=== PATIENT | male | born 1960 | race Caucasian/White ===

== ENCOUNTER → 2016-10-08 | Outpatient (CLI) | payer OTHER ==
--- NOTE | 2016-10-08 10:27 | DIAGNOSTIC IMAGING REPORT ---
CHEST 2 VIEWS ROUTINE HISTORY: J45.901 Asthma exacerbation [id number] COMPARISON: None. FINDINGS: The right lung is clear. The heart is normal in size. No pleural fusions. No pneumothorax. Suggestion of a small cluster of subcentimeter nodules within the left upper lobe. Largest nodular density measures 7 mm. IMPRESSION: There is suggestion of a small cluster of subcentimeter nodules within the left upper lobe. This favors a mild infectious bronchiolitis. One month chest x-ray follow-up is recommended to ensure resolution. Electronically signed by: Bib Noel M.D. 10/08/2016 10:26 AM Dictated Date/Time: 10/08/2016 10:23 AM
[2016-10-08 12:16] LABS: BASO % 0.2 %; BASO ABS # 0.02 K/uL (0-0.2); COMPLETE YES; EOS % 2.9 %; HEMATOCRIT 44.7 % (42-52); IG% 0.3 %; LYMPH % 16.8 %; LYMPH ABS # 1.88 K/uL (1.2-3.4); MEAN CELL VOLUME 87.3 fL (80-100); MEAN CORPUSCULAR HEMOGLOBIN 30.1 pg (25-34); MEAN CORPUSCULAR HGB CONC 34.5 g/dl (32-36); MEAN PLATELET VOLUME 10.5 fL (7.4-10.4); MONO % 9.1 %; NEUT % 70.7 %; PLATELET COUNT 251 K/uL (130-400); RED BLOOD COUNT 5.12 M/uL (4.7-6.1); WHITE BLOOD COUNT 11.16 K/uL (4.8-10.8)
== END | disposition home or self-care (01) ==
LOC: C.RAD1850 10:02
PROVIDERS: ATTEND Internal Medicine Pulmonary Disease
DX: J45.901 Unspecified asthma with (acute) exacerbation (principal)

== ENCOUNTER → 2016-10-21 | Outpatient (CLI) | payer OTHER ==
--- NOTE | 2016-10-21 11:50 | DIAGNOSTIC IMAGING REPORT ---
VENOUS DOPPLER LW EXT BILAT HISTORY: Pain. Edema. M79.89 Leg [id number] Leg pain, anterior, right scheduled at COMPARISON STUDY: None. FINDINGS: There is normal compressibility, flow, and augmentation within the bilateral lower extremity deep venous systems. IMPRESSION: No DVT within the right or left lower extremity. The above report was generated using voice recognition software. It may contain grammatical, syntax or spelling errors. Electronically signed by: Alexis Burt M.D. 10/21/2016 11:48 AM Dictated Date/Time: 10/21/2016 11:48 AM
== END | disposition home or self-care (01) ==
LOC: C.ULTR 11:05
PROVIDERS: ATTEND Internal Medicine Pulmonary Disease
DX: M79.604 Pain in right leg (principal); M79.89 Other specified soft tissue disorders

== ENCOUNTER → 2016-10-21 | Outpatient (CLI) | payer OTHER ==
--- NOTE | 2016-10-21 08:50 | DIAGNOSTIC IMAGING REPORT ---
CHEST 2 VIEWS ROUTINE CLINICAL HISTORY: J45.909 Intrinsic venqzvJ85.901 Asthma [id number] Acute b COMPARISON STUDY: 10/08/2016 FINDINGS: Lungs currently are considered clear. No significant nodular pathology. Diaphragms smooth. Calcific angles sharp. IMPRESSION: Lungs are now considered clear. No focal infiltrate. The above report was generated using voice recognition software. It may contain grammatical, syntax or spelling errors. Electronically signed by: Alexis Burt M.D. 10/21/2016 8:49 AM Dictated Date/Time: 10/21/2016 8:48 AM
== END | disposition home or self-care (01) ==
LOC: C.RAD1850 08:34
PROVIDERS: ATTEND Internal Medicine Pulmonary Disease
DX: J20.9 Acute bronchitis, unspecified (principal); J45.901 Unspecified asthma with (acute) exacerbation; J45.909 Unspecified asthma, uncomplicated

== ENCOUNTER 2017-05-11 12:52 | Emergency (ER) | payer OTHER ==
[~2017-05-11] VITALS: Ht 167.6 cm; Wt 79.4 kg
[2017-05-11 12:57] VITALS: TEMP 37.1; Ht 167.6 cm; Wt 79.4 kg
[2017-05-11] MEDS ORDERED: MoRPHine SULFATE 4 MG/ML 1 ML CARP\\VIAL IV STA (13:06)
[2017-05-11] MEDS ORDERED: ONDANSETRON INJ 2 MG/ML 2 ML VIAL IV STA (13:06)
--- NOTE | 2017-05-11 13:15 | EMERGENCY ROOM VISIT NOTE ---
History First contact with patient: 12:59 Chief Complaint: KIDNEY STONE Stated Complaint: URINARY BLOCKAGE, KIDNEY STONE History of Present Illness The patient is a 56 year old male who presents to the Emergency Room via private vehicle accompanied by female with complaints of "urinary blockage, kidney stone". The patient states that he has a history of renal calculi. He states that he follows locally with Dr. Hussein Juarez. he states that he passed his most recent stone on March 10 of this year. He was doing well up until yesterday he states that he began to dribble when trying to urinate. He states that he had a tingling sensation in his urinary tract and left flank pain. Throughout the evening he was doing okay but since 11 AM he can no longer urinate/dribble urine. He rates the overall pain is a 9/10. Feels like previous stones. He denies any fevers or chills but notes that he feels very pale. Review of Systems A complete 10-point Review of Systems was discussed with the patient, with pertinent positives and negatives listed in the History of Present Illness. All remaining Review of Systems questions can be considered negative unless otherwise specified. Past Medical/Surgical History Renal calculi Family History Noncontributory Social History Smoking Status: Never Smoker Patient lives locally. Current/Historical Medications Scheduled Albuterol Sulf (Proventil 0.083% 2.5MG/3ML), 2.5 MG INH QID Azelastine Hcl-Fluticasone Pro (Dymista), 1 SPRY ADÁN DAILY Dextromethorphan Polistirex (Delsym), 5 ML PO UD Doxycycline Hyclate (Doxycycline Hyclate), 1 TAB PO BID Flaxseed (Linseed) (Flax Seed Oil), 1 CAP PO DAILY Fluticasone Prop/Salmeterol (Advair Diskus 100/50 60 Dose), 1 PUFF INH BID Metoprolol Tartrate (Lopressor), Unknown Dose PO BID Multiple Vitamins W/ Minerals (Centrum Silver 50+Men), 1 TAB PO DAILY Pseudoephedrine-Guaifenesin (Mucinex D), 1 TAB PO BID Selenium-Yeast (Selenium), 1 TAB PO DAILY Tamsulosin Hcl (Flomax), 0.4 MG PO DAILY Physical Exam Vital Signs Date Time Temp Pulse Resp B/P (MAP) Pulse Ox O2 Delivery O2 Flow Rate FiO2 05/11/17 16:11 88 20 149/83 98 05/11/17 14:13 83 18 145/88 95 Room Air 05/11/17 12:57 37.1 119 20 186/103 97 Room Air Physical Exam VITAL SIGNS - Vital signs and nursing notes were reviewed. Stable. Afebrile. Hypertensive and tachycardic. GENERAL -56-year-old male appearing his stated age who is in no acute distress. Communicates well with provider and answers questions appropriately. SKIN - Without rashes. No meningeal petechial rash. HEAD - NC/AT. EYES - Sclera anicteric. EARS - No deformities of external structures noted on gross examination bilaterally. LUNGS - Chest wall symmetric without accessory muscle use, intercostals retractions, or central cyanosis. Normal vesicular breath sounds CTA B/L. No wheezes, rales, or rhonchi appreciated. CARDIAC - RRR with S1/S2. No murmur, rubs, or gallops appreciated. ABDOMEN - Abdominal contour normal without pulsations or visible masses. BS normoactive all four quadrants. Suprapubic abdominal tenderness. Left flank tenderness. No palpable masses, hepatosplenomegaly, or ascites noted. PSYCH -Pt is very pleasant and interacts well with examiner. RECTAL: Enlarged prostate noted. Otherwise unremarkable. No tenderness. Medical Decision & Procedures ER Provider Diagnostic Interpretation: KUB CLINICAL HISTORY: L FLANK PAIN, CANNOT URINATE COMPARISON STUDY: No previous studies for comparison. FINDINGS: There is no pathologic bowel dilatation. The renal shadows are partially obscured overlying bowel gas and fecal material. No definite calculi are visualized. There is a curvilinear calcification projected over the lower pole of the right kidney. This is of uncertain etiology. There are nonspecific pelvic basin calcifications, likely vascular.. There are sclerotic lesions within the right iliac bone largest of which measures 14 mm. And the absence of a known primary malignancy these likely represent bone islands. IMPRESSION: 1. No definite urinary tract calculi identified 2. No evidence of pathologic bowel dilatation Electronically signed by: Shayne Kwong M.D. 05/11/2017 1:40 PM Dictated Date/Time: 05/11/2017 1:39 PM ABD/PELVIS WITHOUT FOR STONE CLINICAL HISTORY: 56 years-old Male presenting with L flank pain, hx stones. Cannot void. Groin burning.. TECHNIQUE: Multidetector CT of the abdomen and pelvis was performed without the use of intravenous contrast. IV contrast: None. A dose lowering technique was used consistent with the principles of ALARA (as low as reasonably achievable). COMPARISON: None. CT DOSE (mGy.cm): The estimated cumulative dose is 677.91 mGy.cm. FINDINGS: Dental Nurse topogram: Unremarkable. Lung bases: Lungs and pleural spaces clear. Normal heart size. Coronary artery calcification. Trace pericardial effusion. No pleural effusion. Liver: Normal morphology. Numerous well-defined hypodensities scattered throughout the liver parenchyma, likely hepatic cysts but indeterminate on this noncontrast examination. Biliary: No gross biliary ductal dilatation allowing for noncontrast technique. Normal gallbladder. Pancreas: Normal noncontrast appearance. Spleen: Normal noncontrast appearance. Adrenal glands: 10 mm nodule in the left adrenal gland consistent with a benign adenoma by density. Right adrenal gland normal. Kidneys and ureters: Peripherally calcified lesion at the lower pole the right kidney, which measures 1.6 cm and is centrally hypodense, suggestive of a complex cyst. More simple appearing hypodense lesion at the upper pole the right kidney suggestive of a simple cyst. Evaluation of renal parenchyma is limited due to noncontrast technique. Faint calcification in the region of the medullary pyramids in the left kidney suggests medullary nephrocalcinosis. Bilateral extrarenal pelvises. Ureters are normal. No renal or ureteral calculus. Bladder: Distended bladder. Pelvic organs: Markedly enlarged prostate with a prominent median lobe hypertrophy protruding into the bladder neck. Bowel: Pancolonic diverticulosis. The appendix is normal. No bowel obstruction. Peritoneal cavity: No free fluid or intraperitoneal gas. Lymph nodes: No gross lymphadenopathy allowing for noncontrast technique. Vasculature: Normal noncontrast appearance. Abdominal wall: Small fat-containing umbilical hernia. Musculoskeletal: Degenerative changes of the spine. Few scattered sclerotic lesions in the pelvis likely bone islands. IMPRESSION: 1. Marked prostatomegaly with a prominent median lobe protruding into the bladder. This results in a distended bladder. Correlate for urinary retention and urinalysis. 2. No nephrolithiasis or hydronephrosis. 3. Suggestion of medullary nephrocalcinosis on the left. Electronically signed by: Frederic Mendoza M.D. Laboratory Results 05/11/17 13:10 Red Blood Count 5.19, Mean Corpuscular Volume 85.2, Mean Corpuscular Hemoglobin 30.8, Mean Corpuscular Hemoglobin Concent 36.2, Mean Platelet Volume 10.3, Neutrophils (%) (Auto) 84.8, Lymphocytes (%) (Auto) 10.7, Monocytes (%) (Auto) 4.0, Eosinophils (%) (Auto) 0.0, Basophils (%) (Auto) 0.2, Neutrophils # (Auto) 10.61, Lymphocytes # (Auto) 1.34, Monocytes # (Auto) 0.50, Eosinophils # (Auto) 0.00, Basophils # (Auto) 0.02 05/11/17 13:10 Test 05/11/17 13:10 05/11/17 14:40 White Blood Count 12.51 K/uL (4.8-10.8) Red Blood Count 5.19 M/uL (4.7-6.1) Hemoglobin 16.0 g/dL (14.0-18.0) Hematocrit 44.2 % (42-52) Mean Corpuscular Volume 85.2 fL (80-100) Mean Corpuscular Hemoglobin 30.8 pg (25-34) Mean Corpuscular Hemoglobin Concent 36.2 g/dl (32-36) Platelet Count 266 K/uL (130-400) Mean Platelet Volume 10.3 fL (7.4-10.4) Neutrophils (%) (Auto) 84.8 % Lymphocytes (%) (Auto) 10.7 % Monocytes (%) (Auto) 4.0 % Eosinophils (%) (Auto) 0.0 % Basophils (%) (Auto) 0.2 % Neutrophils # (Auto) 10.61 K/uL (1.4-6.5) Lymphocytes # (Auto) 1.34 K/uL (1.2-3.4) Monocytes # (Auto) 0.50 K/uL (0.11-0.59) Eosinophils # (Auto) 0.00 K/uL (0-0.5) Basophils # (Auto) 0.02 K/uL (0-0.2) RDW Standard Deviation 42.5 fL (36.4-46.3) RDW Coefficient of Variation 13.6 % (11.5-14.5) Immature Granulocyte % (Auto) 0.3 % Immature Granulocyte # (Auto) 0.04 K/uL (0.00-0.02) Anion Gap 11.0 mmol/L (3-11) Est Creatinine Clear Calc Drug Dose 77.4 ml/min Estimated GFR () 92.4 Estimated GFR (Non- 79.7 BUN/Creatinine Ratio 19.6 (10-20) Calcium Level 9.6 mg/dl (8.5-10.1) Prostate Specific Antigen 5.530 ng/ml (0.000-4.000) Urine Color YELLOW Urine Appearance CLEAR (CLEAR) Urine pH 5.5 (4.5-7.5) Urine Specific [place] 1.023 (1.000-1.030) Urine Protein NEG (NEG) Urine Glucose (UA) NEG (NEG) Urine Ketones 1+ (NEG) Urine Occult Blood TRACE (NEG) Urine Nitrite NEG (NEG) Urine Bilirubin NEG (NEG) Urine Urobilinogen NEG (NEG) Urine Leukocyte Esterase NEG (NEG) Urine WBC (Auto) 1-5 /hpf (0-5) Urine RBC (Auto) 5-10 /hpf (0-4) Urine Hyaline Casts (Auto) 1-5 /lpf (0-5) Urine Epithelial Cells (Auto) 10-20 /lpf (0-5) Urine Bacteria (Auto) NEG (NEG) Medications Administered Medications (Trade) Dose Ordered Sig/Farida Route Start Time Stop Time Status Last Admin Dose Admin Morphine Sulfate (MoRPHine SULFATE INJ) 4 mg NOW STAT IV 05/11/17 13:06 05/11/17 13:08 DC 05/11/17 13:25 4 MG Ondansetron HCl (Zofran Inj) 4 mg NOW STAT IV 05/11/17 13:06 05/11/17 13:08 DC 05/11/17 13:25 4 MG Ketorolac Tromethamine (Toradol Inj) 30 mg NOW STAT IV 05/11/17 13:53 05/11/17 13:55 DC 05/11/17 14:11 30 MG Medical Decision Patient was seen and evaluated as above in room C 11. He presents to us today with left flank pain and inability to void. He has a history of renal calculi as well as prostate enlargement. Review was performed of nursing notes and vital signs. After obtaining a thorough history and physical examination the above work up was performed. KUB essentially negative for acute process. Decision was made to obtain CT scan. This reveals enlarged prostate. This is likely causing the urinary retention. Minimal leukocytosis noted. I suspect this likely secondary to stress reaction of the patient's pain. No evidence of infection on exam. No concerning anemia. Metabolic panel reveals dehydration. PSA elevated at 5.5. Urine reveals trace occult blood and ketones. No evidence of infection. The CT scan results were discussed with the patient. A catheter was placed with drainage to gravity with excellent drainage of the urine. Bladder scan was performed prior to doing such and revealed 753 mL's. He drained nearly all this amount into the catheter collection bag. This was converted to a leg bag. No evidence of prostatitis. I suspect this is likely from gradual enlargement of the prostate over time. He is to follow with urology. He is also to call the family doctor to schedule follow-up regarding the CT scan results. He appears stable for outpatient management. Case was discussed with the attending physician. The patient was educated upon management, had questions answered prior to discharge, and was discharged home in good condition. Case was discussed with the attending physician. In the evaluation and treatment of this patient the following differential diagnoses were entertained: Renal calculi, mass, enlarged prostate, UTI, pyelonephritis, among others. Impression Primary Impression: Left flank pain Additional Impression: Voiding difficulty Departure Information Dispostion Home / Self-Care Condition GOOD Referrals No Doctor, Assigned (PCP) Hussein Juarez M.D. Patient Instructions ED Catheter Care [facility] Additional Instructions You have been treated in the Emergency Department today for a blockage of your bladder caused by your prostate. You have received pain medicine in the emergency department which impairs your ability to operate a vehicle. It is illegal for you to drive after receiving these medicines. Keep cardona in place to help keep draining bladder. Please call the urologist Dr. Juarez tomorrow as well as your family doctor to schedule follow-up. Please discuss with them your x-ray and CAT scan results. Your PSA was also elevated around 5.5. For pain control, you can use the following [id number] medicines: - Regular strength (325mg/tab) Tylenol (acetaminophen) 2 tabs every 4-6 hours as needed. Do not exceed 12 tablets in a 24 hour period. Avoid taking more than 3 grams (3000 mg) of Tylenol per day. This includes any other sources of acetaminophen you may take on a regular basis. - Regular strength (200 mg/tab) Advil (ibuprofen) 1-2 tabs every 4-6 hours as needed. Do not exceed a dose of 3200 mg per day. You have been provided a strainer and specimen collection cup. You should strain your urine to collect any passed stones. Your stones can be placed into the specimen cup and taken to your Urologist for further evaluation. You have been provided the contact information for the on-call Urologist. You should contact the Urologist's office tomorrow to establish a follow-up appointment from today's Emergency Department visit. Return to the Emergency Department if your symptoms persist despite the treatment plan outlined above or if you develop the following symptoms: intractable pain, fever, chills, or large amounts of blood in your urine. IMAGING RESULTS: KUB CLINICAL HISTORY: L FLANK PAIN, CANNOT URINATE COMPARISON STUDY: No previous studies for comparison. FINDINGS: There is no pathologic bowel dilatation. The renal shadows are partially obscured overlying bowel gas and fecal material. No definite calculi are visualized. There is a curvilinear calcification projected over the lower pole of the right kidney. This is of uncertain etiology. There are nonspecific pelvic basin calcifications, likely vascular.. There are sclerotic lesions within the right iliac bone largest of which measures 14 mm. And the absence of a known primary malignancy these likely represent bone islands. IMPRESSION: 1. No definite urinary tract calculi identified 2. No evidence of pathologic bowel dilatation Electronically signed by: Shayne Kwong M.D. 05/11/2017 1:40 PM Dictated Date/Time: 05/11/2017 1:39 PM ABD/PELVIS WITHOUT FOR STONE CLINICAL HISTORY: 56 years-old Male presenting with L flank pain, hx stones. Cannot void. Groin burning.. TECHNIQUE: Multidetector CT of the abdomen and pelvis was performed without the use of intravenous contrast. IV contrast: None. A dose lowering technique was used consistent with the principles of ALARA (as low as reasonably achievable). COMPARISON: None. CT DOSE (mGy.cm): The estimated cumulative dose is 677.91 mGy.cm. FINDINGS: Dental Nurse topogram: Unremarkable. Lung bases: Lungs and pleural spaces clear. Normal heart size. Coronary artery calcification. Trace pericardial effusion. No pleural effusion. Liver: Normal morphology. Numerous well-defined hypodensities scattered throughout the liver parenchyma, likely hepatic cysts but indeterminate on this noncontrast examination. Biliary: No gross biliary ductal dilatation allowing for noncontrast technique. Normal gallbladder. Pancreas: Normal noncontrast appearance. Spleen: Normal noncontrast appearance. Adrenal glands: 10 mm nodule in the left adrenal gland consistent with a benign adenoma by density. Right adrenal gland normal. Kidneys and ureters: Peripherally calcified lesion at the lower pole the right kidney, which measures 1.6 cm and is centrally hypodense, suggestive of a complex cyst. More simple appearing hypodense lesion at the upper pole the right kidney suggestive of a simple cyst. Evaluation of renal parenchyma is limited due to noncontrast technique. Faint calcification in the region of the medullary pyramids in the left kidney suggests medullary nephrocalcinosis. Bilateral extrarenal pelvises. Ureters are normal. No renal or ureteral calculus. Bladder: Distended bladder. Pelvic organs: Markedly enlarged prostate with a prominent median lobe hypertrophy protruding into the bladder neck. Bowel: Pancolonic diverticulosis. The appendix is normal. No bowel obstruction. Peritoneal cavity: No free fluid or intraperitoneal gas. Lymph nodes: No gross lymphadenopathy allowing for noncontrast technique. Vasculature: Normal noncontrast appearance. Abdominal wall: Small fat-containing umbilical hernia. Musculoskeletal: Degenerative changes of the spine. Few scattered sclerotic lesions in the pelvis likely bone islands. IMPRESSION: 1. Marked prostatomegaly with a prominent median lobe protruding into the bladder. This results in a distended bladder. Correlate for urinary retention and urinalysis. 2. No nephrolithiasis or hydronephrosis. 3. Suggestion of medullary nephrocalcinosis on the left. Electronically signed by: Frederic Mendoza M.D. Problem Qualifiers
[2017-05-11 13:20] LABS: BASO % 0.2 %; BASO ABS # 0.02 K/uL (0-0.2); HEMATOCRIT 44.2 % (42-52); IG# 0.04 K/uL (0.00-0.02); LYMPH % 10.7 %; LYMPH ABS # 1.34 K/uL (1.2-3.4); MEAN CELL VOLUME 85.2 fL (80-100); MEAN CORPUSCULAR HEMOGLOBIN 30.8 pg (25-34); MEAN CORPUSCULAR HGB CONC 36.2 g/dl (32-36); MEAN PLATELET VOLUME 10.3 fL (7.4-10.4); NEUT % 84.8 %; NEUT ABS # 10.61 K/uL (1.4-6.5); PLATELET COUNT 266 K/uL (130-400); RED CELL DISTRIBUTION WIDTH CV 13.6 % (11.5-14.5); RED CELL DISTRIBUTION WIDTH SD 42.5 fL (36.4-46.3); WHITE BLOOD COUNT 12.51 K/uL (4.8-10.8)
--- NOTE | 2017-05-11 13:42 | DIAGNOSTIC IMAGING REPORT ---
KUB CLINICAL HISTORY: L FLANK PAIN, CANNOT URINATE COMPARISON STUDY: No previous studies for comparison. FINDINGS: There is no pathologic bowel dilatation. The renal shadows are partially obscured overlying bowel gas and fecal material. No definite calculi are visualized. There is a curvilinear calcification projected over the lower pole of the right kidney. This is of uncertain etiology. There are nonspecific pelvic basin calcifications, likely vascular.. There are sclerotic lesions within the right iliac bone largest of which measures 14 mm. And the absence of a known primary malignancy these likely represent bone islands. IMPRESSION: 1. No definite urinary tract calculi identified 2. No evidence of pathologic bowel dilatation Electronically signed by: Shayne Kwong M.D. 05/11/2017 1:40 PM Dictated Date/Time: 05/11/2017 1:39 PM
[2017-05-11 13:53] LABS: CALCIUM 9.6 mg/dl (8.5-10.1); CREATININE 1.03 mg/dl (0.60-1.40); POTASSIUM 3.8 mmol/L (3.5-5.1)
[2017-05-11] MEDS ORDERED: KETOROLAC TROMETHAMINE 30 MG/ML VIAL IV STA (13:53)
--- NOTE | 2017-05-11 14:15 | DIAGNOSTIC IMAGING REPORT ---
ABD/PELVIS WITHOUT FOR STONE CLINICAL HISTORY: 56 years-old Male presenting with L flank pain, hx stones. Cannot void. Groin burning.. TECHNIQUE: Multidetector CT of the abdomen and pelvis was performed without the use of intravenous contrast. IV contrast: None. A dose lowering technique was used consistent with the principles of ALARA (as low as reasonably achievable). COMPARISON: None. CT DOSE (mGy.cm): The estimated cumulative dose is 677.91 mGy.cm. FINDINGS: School Age Lead Teacher topogram: Unremarkable. Lung bases: Lungs and pleural spaces clear. Normal heart size. Coronary artery calcification. Trace pericardial effusion. No pleural effusion. Liver: Normal morphology. Numerous well-defined hypodensities scattered throughout the liver parenchyma, likely hepatic cysts but indeterminate on this noncontrast examination. Biliary: No gross biliary ductal dilatation allowing for noncontrast technique. Normal gallbladder. Pancreas: Normal noncontrast appearance. Spleen: Normal noncontrast appearance. Adrenal glands: 10 mm nodule in the left adrenal gland consistent with a benign adenoma by density. Right adrenal gland normal. Kidneys and ureters: Peripherally calcified lesion at the lower pole the right kidney, which measures 1.6 cm and is centrally hypodense, suggestive of a complex cyst. More simple appearing hypodense lesion at the upper pole the right kidney suggestive of a simple cyst. Evaluation of renal parenchyma is limited due to noncontrast technique. Faint calcification in the region of the medullary pyramids in the left kidney suggests medullary nephrocalcinosis. Bilateral extrarenal pelvises. Ureters are normal. No renal or ureteral calculus. Bladder: Distended bladder. Pelvic organs: Markedly enlarged prostate with a prominent median lobe hypertrophy protruding into the bladder neck. Bowel: Pancolonic diverticulosis. The appendix is normal. No bowel obstruction. Peritoneal cavity: No free fluid or intraperitoneal gas. Lymph nodes: No gross lymphadenopathy allowing for noncontrast technique. Vasculature: Normal noncontrast appearance. Abdominal wall: Small fat-containing umbilical hernia. Musculoskeletal: Degenerative changes of the spine. Few scattered sclerotic lesions in the pelvis likely bone islands. IMPRESSION: 1. Marked prostatomegaly with a prominent median lobe protruding into the bladder. This results in a distended bladder. Correlate for urinary retention and urinalysis. 2. No nephrolithiasis or hydronephrosis. 3. Suggestion of medullary nephrocalcinosis on the left. Electronically signed by: Frederic Mendoza M.D. 05/11/2017 2:13 PM Dictated Date/Time: 05/11/2017 2:05 PM
[2017-05-11] MEDS ORDERED: ADVIN10/60 INH (15:50)
[2017-05-11] MEDS ORDERED: PSEU60TA80 PO (15:50)
[2017-05-11] MEDS ORDERED: MULT-1093 PO (15:50)
[2017-05-11] MEDS ORDERED: DOXY100T PO (15:50)
[2017-05-11] MEDS ORDERED: TAMS0.4C38 PO (15:50)
[2017-05-11] MEDS ORDERED: DEXT30LI4 PO (15:50)
[2017-05-11] MEDS ORDERED: AZEL30SP NAE (15:50)
[2017-05-11] MEDS ORDERED: FLAX1CAP11 PO (15:50)
[2017-05-11] MEDS ORDERED: METO-551 PO (15:50)
[2017-05-11] MEDS ORDERED: ALBINS/ INH (15:50)
[2017-05-11] MEDS ORDERED: SELE1TAB5 PO (15:50)
[2017-05-11 16:11] VITALS: BP 149/83; PULSE 88; O2SAT 98
== END 2017-05-11 16:14 | disposition home or self-care (01) ==
LOC: C.EDB 12:54 → C.EDC 16:14
DX: R10.9 Unspecified abdominal pain (principal); R33.9 Retention of urine, unspecified

== ENCOUNTER 2017-05-13 21:30 | Emergency (ER) | payer OTHER ==
[~2017-05-13] VITALS: Ht 167.6 cm; Wt 78.0 kg
[~2017-05-13 21:30] MED LIST: ADVIN10/60 INH; ALBINS/ INH; AZEL30SP NAE; DEXT30LI4 PO; DOXY100T PO; FLAX1CAP11 PO; METO-551 PO; MULT-1093 PO; PSEU60TA80 PO; SELE1TAB5 PO; TAMS0.4C38 PO
[2017-05-13 21:41] VITALS: TEMP 36.6; Ht 167.6 cm; Wt 78.0 kg
[2017-05-13] MEDS ORDERED: HYDR-5688 PO (22:53)
[2017-05-13] MEDS ORDERED: HYDROCODONE/ACETAMIN 5/325MG TAB PO ONE (23:00)
[2017-05-13] MEDS ORDERED: NORCO 5/325MG HOME PACK PO ONE (23:00)
[2017-05-13 23:56] VITALS: BP 144/83; PULSE 63; O2SAT 97
--- NOTE | 2017-05-14 04:34 | EMERGENCY ROOM VISIT NOTE ---
History First contact with patient: 22:20 Chief Complaint: CATHETER REPLACEMENT Stated Complaint: TOBIAS CATHETER PROBLEM History of Present Illness The patient is a 56 year old male who presents to the Emergency Room with complaints of pain at the end of his penis secondary to a catheter placement. The patient was seen in this facility about 2 days ago where he was found to have urinary retention. The patient had CT scan at that time and that showed a enlarged prostate. The patient had a catheter placed and had significant improvement of his discomfort afterwards. The patient contacted urology, however urology has been very slow to make an appointment for the patient. He states tonight he has had worsening pain at the tip of the penis. He is not having significant abdominal or flank pain. The catheter appears to be functioning and is draining urine. The patient has not had fever or chills. He rates his current discomfort a 7/10. Review of Systems More than 10 systems were reviewed and otherwise negative with the exception of history of present illness. Past Medical/Surgical History No chronic medical disease Social History Smoking Status: Never Smoker Housing Status: lives with family Current/Historical Medications Scheduled Albuterol Sulf (Proventil 0.083% 2.5MG/3ML), 2.5 MG INH QID Azelastine Hcl-Fluticasone Pro (Dymista), 1 SPRY ADÁN DAILY Doxycycline Hyclate (Doxycycline Hyclate), 100 MG PO BID Flaxseed (Linseed) (Flax Seed Oil), 1 CAP PO DAILY Fluticasone Prop/Salmeterol (Advair Diskus 100/50 60 Dose), 1 PUFF INH BID Metoprolol Tartrate (Lopressor), Unknown Dose PO DAILY Multiple Vitamins W/ Minerals (Centrum Silver 50+Men), 1 TAB PO DAILY Selenium-Yeast (Selenium), 1 TAB PO DAILY Tamsulosin Hcl (Flomax), 0.4 MG PO DAILY Scheduled PRN Hydrocodone/Acetaminophen 5MG/325MG ([place] 5MG/325MG), 1-2 TABLET PO Q6 PRN for Pain Physical Exam Vital Signs Date Time Temp Pulse Resp B/P (MAP) Pulse Ox O2 Delivery O2 Flow Rate FiO2 05/13/17 23:56 63 17 144/83 97 Room Air 05/13/17 23:41 64 17 97 Room Air 05/13/17 21:41 36.6 76 18 152/89 97 Room Air Physical Exam VITALS: Vitals are noted on the nurse's note and reviewed by myself. Vital signs stable. GENERAL: Well-developed, well-nourished, white male, who is in no acute distress and resting comfortably. Patient is cooperative with the examination. HEART: Regular rate and rhythm without murmurs gallops or rubs. LUNGS: Clear to auscultation bilaterally without wheezes, rales or rhonchi. No retractions or accessory muscle use. ABDOMEN: Positive normal bowel sounds x 4. Soft with no significant tenderness. No CVA tenderness. : Tobias catheter appears in place. The most distal tip of the urethra is slightly erythematous. There is a small amount of urine leaking around the catheter Medical Decision & Procedures Laboratory Results Test 05/13/17 23:25 Urine Color YELLOW Urine Appearance CLOUDY (CLEAR) Urine pH 5.5 (4.5-7.5) Urine Specific [place] 1.024 (1.000-1.030) Urine Protein 1+ (NEG) Urine Glucose (UA) NEG (NEG) Urine Ketones NEG (NEG) Urine Occult Blood 3+ (NEG) Urine Nitrite NEG (NEG) Urine Bilirubin NEG (NEG) Urine Urobilinogen NEG (NEG) Urine Leukocyte Esterase SMALL (NEG) Urine WBC (Auto) 5-10 /hpf (0-5) Urine RBC (Auto) >30 /hpf (0-4) Urine Hyaline Casts (Auto) 1-5 /lpf (0-5) Urine Epithelial Cells (Auto) 20-30 /lpf (0-5) Urine Bacteria (Auto) NEG (NEG) Medications Administered Medications (Trade) Dose Ordered Sig/Farida Route Start Time Stop Time Status Last Admin Dose Admin Acetaminophen/ Hydrocodone Bitart ([place] 5/325 Tab) 1 tab NOW ONCE PO 05/13/17 23:00 05/13/17 23:01 DC 05/13/17 22:56 1 TAB Acetaminophen/ Hydrocodone Bitart ([place] 5/325mg Home Pack) 1 homepack UD ONCE PO 05/13/17 23:00 05/13/17 23:01 DC 05/13/17 23:00 1 HOMEPACK ED Course Physical exam and history were performed. Nursing notes, EMR, and Medication List were personally reviewed. Patient appears to have some discomfort after a catheter placement 2 days ago. Additionally he is having difficulty following up with urology. The patient is also complaining of some leaking of urine around the end of the catheter, which is appreciated on examination. I discussed options of care with the patient, and ultimately we elected to remove and replace the catheter. I did have the urine sent to the lab for culture. The patient will be given a short course of Vicodin for pain control with the Tobias seems to be causing him discomfort. We did use a smaller gauge catheter the previous, in hopes of improving his symptoms. Additionally I discussed the case with case management, who will help facilitate urology follow-up. The patient was very pleased with this plan and voiced understanding. He was otherwise invited back to the ER with any new , worsening, or concerning symptoms. The chart was completed utilizing [employer] Voice Recognition Software. Grammatical errors, random word insertions, pronoun errors, and incomplete sentences are an occasional consequence of this system due to software limitations, ambient noise, and hardware issues. Any formal questions or concerns about the content, text, or information contained within the body of this dictation should be directly addressed to the provider for clarification. . Medical Decision Differential diagnosis includes, but is not limited to: Malfunctioning catheter , UTI, enlarged prostate, urinary retention, and others Impression Primary Impression: Complication of catheter Departure Information Dispostion Home / Self-Care Condition GOOD Prescriptions Hydrocodone/Acetaminophen 5MG/325MG ([place] 5MG/325MG) Tab 1-2 TABLET PO Q6 Y for Pain for 3 Days, #15 TAB PRN PAIN Prov: Srinivas Vasquez PA-C 05/13/17 Referrals No Doctor, Assigned (PCP) Forms HOME CARE DOCUMENTATION FORM, IMPORTANT VISIT INFORMATION Patient Instructions My [facility] Additional Instructions You were seen and evaluated today on an emergency basis only. This is not a substitute for, or an effort to provide, complete comprehensive medical care. It is not possible to recognize and treat all injuries or illnesses in a single emergency department visit. For this reason it is recommended that you followup with Urology, Dr. Juarez' s office, for ongoing care and evaluation. Case management will help facilitate this appointment. [place] (hydrocodone/acetaminophen) 5/325 mg ONE or TWO by mouth every 6 hours as needed for worsening breakthrough pain. Do not drink or drive on [place]. This medication will likely make you tired. Do not take [place] and Tylenol at the same time as both contain acetaminophen. [place] may cause constipation. You may wish to take an [id number] stool softener like Colace if this occurs. You are welcome to return to the emergency department anytime with new, worsening, or concerning symptoms.
--- NOTE | 2017-05-14 09:20 | EMERGENCY ROOM VISIT NOTE ---
ED Visit Note First contact with patient: 08:30 Received a call from the outpatient pharmacist attempting to fill the prescription is written for [place] 5/325 by the physician pediatric dental assistant overnight. Pharmacist states they were unable to fill the prescription due to lack of appropriate wording on the prescription for controlled substance. A new prescription will be called and under my name for the same medication [place] 5/ 325 dispense #10 1-2 tablets p.o. every 6 hours as needed pain.
== END 2017-05-13 23:58 | disposition home or self-care (01) ==
LOC: C.EDB 21:32 → C.EDC 23:58
DX: T85.9XXA Unspecified complication of internal prosthetic device, implant and graft, initial encounter (principal); X58.XXXA Exposure to other specified factors, initial encounter

== ENCOUNTER 2017-05-15 18:37 | Emergency (ER) | payer OTHER ==
[~2017-05-15] VITALS: Ht 167.6 cm; Wt 78.1 kg
[~2017-05-15 18:37] MED LIST changes: -DEXT30LI4 PO; +HYDR-5688 PO; -PSEU60TA80 PO
[2017-05-15 18:53] VITALS: Ht 167.6 cm; Wt 78.1 kg
[2017-05-15] MEDS ORDERED: ONDANSETRON 4MG OD TAB PO STA (19:32)
[2017-05-15] MEDS ORDERED: KETOROLAC TROMETHAMINE 60 MG/2 ML VIAL IM STA (19:32)
[2017-05-15] MEDS ORDERED: HYDROmorphone INJ 2 MG/ML SYR/VIAL IM STA (19:32)
--- NOTE | 2017-05-15 20:41 | Urology Consultation ---
History General Date of Service: May 15, 2017. Chief Complaint: Urinary retention Primary Care Physician: No Doctor, Assigned Pt seen a urologist before?: Yes If yes, why?: Dr. Juarez for retention History of Present Illness 56 yo male known to our service, s/p TOV earlier today. He has been started on finasteride by Dr. Juarez, already on tamsulosin 0.8 mg. He attempted CIC as instructed x 2 with no success - presented to the ER and had a 14 fr cardona placed. This is draining pink urine, no clots, improved SP pressure. HPI - Urinary Retention Sx Patient has: + urinary retention, + cardona, + hematuria Medications Include: + alpha blockers, + finasteride, + tamsulosin Problem List Medical Problems: (1) Complication of catheter Status: Acute (2) Left flank pain Status: Acute (3) Voiding difficulty Status: Acute Past History asthma, BPH, GERD, hypertension, kidney stones Past Surgical History: other Social History Smoking: non-smoker Alcohol: socially Marital status: Housing status: lives with family Occupation status: employed Allergies Coded Allergies: No Known Allergies (Unverified , 05/13/17) Medications Home Medications: Home Meds and Scripts Medications Dose Route/Sig Max Daily Dose Days Date Category Dose Instructions [place] 5MG/325MG (Acetaminophen/Hydrocodone Bitart) Tab 1-2 Tablet PO Q6 PRN 3 05/13/17 Rx PRN PAIN Dymista (Azelastine Hcl-Fluticasone Pro) 1 Spr Spr 1 [place] ADÁN DAILY 30 05/11/17 Reported Advair Diskus 100/50 60 Dose (Fluticasone Prop/Salmeterol) 1 Ea Aerp 1 Puff INH BID 05/11/17 Reported Proventil 0.083% 2.5MG/3ML (Albuterol Sulf) 2.5 Mg/3 Ml Nebu 2.5 Mg INH QID 05/11/17 Reported Selenium (Selenium-Yeast) 1 Tab Tab 1 Tab PO DAILY 05/11/17 Reported Centrum Silver 50+Men (Multiple Vitamins W/ Minerals) 1 Tab Tab 1 Tab PO DAILY 05/11/17 Reported Flax Seed Oil (Flaxseed (Linseed)) 1 Cap Cap 1 Cap PO DAILY 05/11/17 Reported Lopressor (Metoprolol Tartrate) Unknown Strength Tab Unknown Dose PO DAILY 05/11/17 Reported Flomax (Tamsulosin Hcl) 0.4 Mg Cap 0.4 Mg PO DAILY 05/11/17 Reported Doxycycline Hyclate 100 Mg Tab 100 Mg PO BID 7 05/11/17 Reported Review of Systems Review of Systems Constitutional: No fever, No chills Eyes: No double vision, No eye pain Neurological: No dizzy, No passing out Gastrointestinal: No abdominal pain, No nausea, No vomiting Cardiovascular: No angina, No irregular heartbeat Respiratory: No shortness of breath Skin: No rash Musculoskeletal: No neck pain, No back pain Ears / Nose / Throat: No hearing loss Psychologic / Mental: No trouble remembering, No difficulty sleeping Male : + urinary retention, + blood in urine Physical Exam Vital Signs: Vital Signs Past 12 Hours Date Time Temp Pulse Resp B/P (MAP) Pulse Ox O2 Delivery O2 Flow Rate FiO2 05/15/17 18:53 99 18 158/93 95 Room Air Physical Exam: General Appearance: WD/WN, no apparent distress ENT: normal ENT inspection Neck: supple, no adenopathy Respiratory/Chest: no respiratory distress, no accessory muscle use Cardiovascular: no JVD Gastrointestinal: Abdomen: normal abdomen Renal: normal renal Hernia: absent hernia Liver: normal liver Extremities: non-tender Neurologic/Psychiatric: alert, oriented x 3 Skin: normal color Assessment & Plan Assessment & Plan A/P 56 yo male with recurrent urinary retention and hematuria. Recurrent hematuria and retention, unable to perform CIC. Small caliber cardona in place - as noted to patient there is a risk of clotting and obstruction. Offered exchange for a larger cardona - decline. Will arrange to discuss with Dr. Juarez as outpatient - I suspect TUR will be needed to resolve this issue. Will arrange for cysto when possible as outpatient as well.
--- NOTE | 2017-05-15 21:03 | EMERGENCY ROOM VISIT NOTE ---
History Report prepared by Antony: Nicola Orellana Under the Supervision of: Dr. Hu Robbins M.D. First contact with patient: 19:02 Chief Complaint: UNABLE TO VOID Stated Complaint: BLOCKED BLADDER Nursing Triage Summary: has been here a couple times this week had a catheter removed at dr office at noon and has not voided since History of Present Illness The patient is a 56 year old male who presents to the Emergency Room with complaints of the constant inability to urinate beginning this morning. He currently rates his discomfort a 10/10 in severity. The patient states he had a new catheter placed last evening. He reports he was evaluated by urology and had the catheter taken out this morning. The patient notes he was taught how to put a catheter in at his appointment. He states he tried to place a catheter twice and was not successful. The patient reports his urine had blood in it, and he is not able to urinate without the catheter. He notes he does not take blood thinners, and he finished antibiotics this morning for different symptoms. Source of History: patient Onset: this morning Symptom Intensity: 10/10 Quality: other (inability to urinate) Timing: constant Note: Associated symptoms: blood in urine Review of Systems See HPI for pertinent positives & negatives. A total of 10 systems reviewed and were otherwise negative. Past Medical & Surgical Medical Problems: (1) Asthma (2) Eczema (3) HTN (hypertension) (4) Kidney stone Family History Hypertension Kidney disease Kidney stones Social History Smoking Status: Never Smoker Smokeless Tobacco Use: No Alcohol Use: none Marital Status: Housing Status: lives with significant other Current/Historical Medications Scheduled Albuterol Sulf (Proventil 0.083% 2.5MG/3ML), 2.5 MG INH QID Azelastine Hcl-Fluticasone Pro (Dymista), 1 SPRY ADÁN DAILY Ciprofloxacin Hcl (Cipro), 1 TAB PO BID Doxycycline Hyclate (Doxycycline Hyclate), 100 MG PO BID Flaxseed (Linseed) (Flax Seed Oil), 1 CAP PO DAILY Fluticasone Prop/Salmeterol (Advair Diskus 100/50 60 Dose), 1 PUFF INH BID Metoprolol Tartrate (Lopressor), Unknown Dose PO DAILY Multiple Vitamins W/ Minerals (Centrum Silver 50+Men), 1 TAB PO DAILY Selenium-Yeast (Selenium), 1 TAB PO DAILY Tamsulosin Hcl (Flomax), 0.4 MG PO DAILY Scheduled PRN Hydrocodone/Acetaminophen 5MG/325MG ([place] 5MG/325MG), 1-2 TABLET PO Q6 PRN for Pain Allergies Coded Allergies: No Known Allergies (Unverified , 05/13/17) Physical Exam Vital Signs Date Time Temp Pulse Resp B/P (MAP) Pulse Ox O2 Delivery O2 Flow Rate FiO2 05/15/17 21:19 88 18 146/76 92 Room Air 05/15/17 18:53 99 18 158/93 95 Room Air Physical Exam GENERAL: Awake, alert, uncomfortable-appearing, in no acute distress HENT: Normocephalic, atraumatic. Oropharynx unremarkable. EYES: Normal conjunctiva. Sclera non-icteric. NECK: Supple. No nuchal rigidity. FROM. No JVD. RESPIRATORY: Clear to auscultation. CARDIAC: Regular rate, normal rhythm. Extremities warm and well perfused. Pulses equal. ABDOMEN: Soft, non-distended. Tenderness to palpation over the suprapubic region. No rebound or guarding. No masses. RECTAL: Deferred. MUSCULOSKELETAL: Chest examination reveals no tenderness. The back is symmetrical on inspection without obvious abnormality. There is no CVA tenderness to palpation. No joint edema. LOWER EXTREMITIES: Calves are equal size bilaterally and non-tender. No edema. No discoloration. NEURO: Normal sensorium. No sensory or motor deficits noted. SKIN: No rash or jaundice noted. Medical Decision & Procedures Laboratory Results Test 05/15/17 21:30 Urine Color RED Urine Appearance TURBID (CLEAR) Urine pH 6.0 (4.5-7.5) Urine Specific [place] >= 1.030 (1.000-1.030) Urine Protein 2+ (NEG) Urine Glucose (UA) NEG (NEG) Urine Ketones 2+ (NEG) Urine Occult Blood 3+ (NEG) Urine Nitrite NEG (NEG) Urine Bilirubin NEG (NEG) Urine Urobilinogen NEG (NEG) Urine Leukocyte Esterase NEG (NEG) Urine RBC >30 /hpf (0-4) Urine WBC 1-5 /hpf (0-5) Urine Epithelial Cells 0-5 /lpf (0-5) Urine Bacteria NEG (NEG) Medications Administered Medications (Trade) Dose Ordered Sig/Farida Route Start Time Stop Time Status Last Admin Dose Admin Hydromorphone HCl (Dilaudid Inj) 2 mg NOW STAT IM 05/15/17 19:32 05/15/17 19:33 DC 05/15/17 19:44 2 MG Ketorolac Tromethamine (Toradol Inj) 60 mg NOW STAT IM 05/15/17 19:32 05/15/17 19:33 DC 05/15/17 19:44 60 MG Ondansetron HCl (Zofran Odt) 4 mg NOW STAT PO 05/15/17 19:32 05/15/17 19:33 DC 05/15/17 19:43 4 MG Ciprofloxacin (Cipro Tab) 500 mg NOW STAT PO 05/15/17 21:04 05/15/17 21:06 DC 05/15/17 21:18 500 MG ED Course 1905: Past medical records reviewed. The patient was evaluated in room B07. A complete history and physical examination was performed. 1931: Ordered Ondansetron HCl 4mg PO, Ketorolac Tromethamine 60mg IM, Dilaudid Inj 2mg IM 1940: I discussed the patient's case with Dr. Murguia, Urology. He will evaluate the patient in the department. 2102: Dr. Murguia evaluated the patient. He suggests placing the patient on antibiotics and have him follow up as an outpatient. 2103: Ordered Cipro Tab 500mg PO 2106: Upon reexamination the patient is resting comfortably. I discussed results and treatment plan with the patient. He verbalizes agreement and understanding. The patient is ready for discharge when he receives his medication. 2114: Ordered Ciprofloxacin 1 homepack PO Medical Decision This is a 56-year-old male who presents emergency department over concerns about urinary retention. Multiple attempts were tried to place a Busch catheter. Dr. Murguia did come in to see the patient however on his way in a Busch was finally placed. Patient has a large amount of bloody urine which will be sent for sample. Dr. Murguia was kind enough to see the patient. The patient is going to follow-up. The patient was placed on Cipro pending urine culture results. Medication Reconcilliation Current Medication List: was personally reviewed by me Blood Pressure Screening Patient's blood pressure: Elevated blood pressure Blood pressure disposition: Elevated BP felt to be situational Consults Time Called: 1913 Consulting Physician: Dr. Murguia, Urology Returned Call: 1940 I discussed the patient's case with Dr. Murguia, Urology. He will evaluate the patient in the department. 2102: Dr. Murguia evaluated the patient. He suggests placing the patient on antibiotics and have him follow up as an outpatient. Impression Primary Impression: Urinary retention Scribe Attestation The scribe's documentation has been prepared under my direction and personally reviewed by me in its entirety. I confirm that the note above accurately reflects all work, treatment, procedures, and medical decision making performed by me. Departure Information Dispostion Home / Self-Care Prescriptions Ciprofloxacin Hcl (CIPRO) 500 Mg Tab 1 TAB PO BID for 7 Days, #14 TAB Prov: Hu Robbins MD 05/15/17 Referrals No Doctor, Assigned (PCP) Forms HOME CARE DOCUMENTATION FORM, IMPORTANT VISIT INFORMATION, WORK / SCHOOL INSTRUCTIONS Patient Instructions ED Catheter Care Busch, ED Retention Urinary Male, My [facility] Additional Instructions Follow up with Dr Murguia's office Culture results are usually available in approx 48 hours You have been examined and treated today on an emergency basis only. This is not a substitute for, or an effort to provide, complete comprehensive medical care. It is impossible to recognize and treat all injuries or illnesses in a single emergency department visit. It is therefore important that you follow up closely with your PCP. Call as soon as possible for an appointment. Thank you for your time and consideration. I look forward to speaking with you again soon. Please don't hesitate to call us if you have any questions.
[2017-05-15] MEDS ORDERED: CIPROFLOXACIN 500 MG TAB PO STA (21:04)
[2017-05-15] MEDS ORDERED: CIPR-255 PO (21:07)
[2017-05-15] MEDS ORDERED: CIPROFLOXACIN 500MG HOME PACK PO ONE (21:15)
[2017-05-15 21:19] VITALS: BP 146/76; PULSE 88; O2SAT 92
== END 2017-05-15 21:25 | disposition home or self-care (01) ==
LOC: C.EDB 18:38
DX: R33.9 Retention of urine, unspecified (principal); Z93.6 Other artificial openings of urinary tract status; J45.909 Unspecified asthma, uncomplicated; I10 Essential (primary) hypertension

== ENCOUNTER → 2017-05-20 | Outpatient (CLI) | payer OTHER ==
[~2017-05-20] MED LIST changes: +ACET-749 PO; +CIPR-255 PO; +CIPR1TAB10 PO; +DOCU-94 PO; +EPP3/2 IM; -HYDR-5688 PO; +MELATAB2 PO; +TPRSR/50 PO; +VNTHFA/IN INH
== END | disposition home or self-care (01) ==
LOC: C.CPL 17:02
PROVIDERS: ATTEND Urology
DX: N40.1 Benign prostatic hyperplasia with lower urinary tract symptoms (principal); Z01.810 Encounter for preprocedural cardiovascular examination

== ENCOUNTER 2017-05-26 11:03 | Observation (INO) | payer OTHER ==
[2017-05-22 15:33] VITALS: BMI 26.0
[~2017-05-26] VITALS: Ht 167.6 cm; Wt 75.0 kg
[2017-05-26] VITALS (8 sets, daily range): BP systolic 125–156; BP diastolic 74–91; PULSE 56–66; TEMP 36.5–37.5; O2SAT 94–98; Ht 167.6 cm; Wt 75.0 kg
[~2017-05-26 11:03] MED LIST changes: -ACET-749 PO; +CEFTRIAXONE SOD INJ 1000 MG in DEXTROSE 5% 50ML IV SCH; -CIPR1TAB10 PO; -DOCU-94 PO; -DOXY100T PO; +LACTATED RINGER'S 1000ML 1,000 ML IV SCH; -METO-551 PO
[2017-05-26] MEDS ORDERED: EpHEDrine SULFATE INJ 50 MG/ML AMP IV PRN (14:00)
[2017-05-26] MEDS ORDERED: ATROPINE SULFATE 0.1 MG/ML 5ML SYR IV PRN (14:00)
[2017-05-26] MEDS ORDERED: ONDANSETRON INJ 2 MG/ML 2 ML VIAL IV PRN ×2 (14:00→17:00)
--- NOTE | 2017-05-26 14:10 | History & Physical Bridge Note ---
H&P Re-Evaluation Bridge Note: I have examined the patient, reviewed the History & Physical and in the interval since the performance of the History & Physical I have noted the following changes of clinical significance: No changes noted
[2017-05-26] MEDS ORDERED: FENTANYL CITRATE INJ 50 MCG/1 ML 2 ML VIAL ONE ×3 (14:28→16:25)
[2017-05-26] MEDS ORDERED: LIDOCAINE HCL 2% 2 ML VIAL (20MG/ML) ONE (14:28)
[2017-05-26] MEDS ORDERED: PROPOFOL IV EMULSION 10 MG/ML 20 ML VIAL IV ONE (14:28)
[2017-05-26] MEDS ORDERED: DEXAMETHASONE SOD INJ 4 MG/ML VIAL ONE (14:28)
[2017-05-26] MEDS ORDERED: ONDANSETRON INJ 2 MG/ML 2 ML VIAL ONE (14:28)
[2017-05-26] MEDS ORDERED: MIDAZOLAM HCL 1 MG/ML 2ML VIAL ONE (14:28)
[2017-05-26] MEDS ORDERED: BELLADONNA/OPIUM SUPP 60 MG SUPP PR ONE (16:21)
--- NOTE | 2017-05-26 16:49 | [facility] Operative Report ---
Operative Report Operative Date May 26, 2017. Pre-Operative Diagnosis Benign Prostate Hypertrophy with Urinary Retention Post-Operative Diagnosis Benign Prostate Hypertrophy with Urinary Retention Procedure(s) Performed Cystoscopy, Transurethral Resection of Prostate Surgeon Dr. Hussein Juarez Wheel Blocker Surgeon(s) None Estimated Blood Loss 25ml Findings Very large prostate with significant intravesical median lobe Specimens a. Prostate Chips Drains 22 Albanian Busch catheter Anesthesia Type General Complication(s) none Disposition yes Recovery Room / PACU Indications Urinary retention Description of Procedure Patient was identified in the preoperative holding area, appropriate informed consents reviewed and completed and he was transported to the operating suite. Upon arrival he received appropriate preoperative antibiotics in the form of ceftriaxone. Adequate general anesthesia was achieved and he was placed in dorsal lithotomy position where he was sterilely prepped and draped in standard fashion. I began the case by passing a 27 Albanian resectoscope with 30 lens and visual pilot control operator helper. Inspection of the urethra revealed no evidence of stricture disease. Prostate was notably enlarged with significant lateral lobe hypertrophy as well as a large intravesical component. His bladder was moderately irritated from his indwelling Busch catheter. Following my full inspection, exchanged the visual obturator for resecting loop. Of note I made numerous efforts identify the ureteral orifices, however they appear to be hidden by the backside of his intravesical median lobe. I began the case by resecting the median lobe down close to what I thought would be flush with the bladder neck. I was cautious not to over resect in this area for fear of encroaching upon the ureteral orifices. Subsequently moved onto the left lateral lobe followed by the right lateral lobe. After resecting with a loop for a significant amount of time, evacuated all the chips in the bladder and reentered with a button electrode. Subsequently vaporize lateral aspect of the prostate and the remaining aspects of the median lobe to obtain meticulous hemostasis and complete my resection. I confirmed all chips were irrigated out of the bladder. Ensured hemostasis was excellent, I attempted to identify the ureteral orifices but was again unsuccessful. I did inspect with a 70 lens, however he has a heavily trabeculated bladder with irritation from his prior catheter, and I was unable to identify these UO's. I do not believe they were resected and I think of anything I left a small amount of intravesical lobe on the posterior aspect. Overall, his prostatic urethra was widely patent, and I concluded the case after placing a 22 Albanian Busch catheter. He was subsequently extubated and taken to the PACU in stable condition. I attest to the content of the Intraoperative Record and any orders documented therein. Any exceptions are noted below.
[2017-05-26] MEDS ORDERED: ALBUTEROL HFA 8 GM INHALER INH PRN (17:00)
[2017-05-26] MEDS ORDERED: ACETAMINOPHEN 325 MG TAB PO PRN (17:00)
[2017-05-26] MEDS ORDERED: ACETAMINOPHEN/CODEINE 300/30MG TAB PO PRN (17:00)
[2017-05-26] MEDS ORDERED: EPINEPHRINE ADULT AUTO-INJECT 0.3 MG SYR IM PRN (17:00)
[2017-05-26 17:15] LABS: BASO % 0.2 %; BASO ABS # 0.02 K/uL (0-0.2); EOS % 1.9 %; EOS ABS # 0.23 K/uL (0-0.5); HEMATOCRIT 43.3 % (42-52); HEMOGLOBIN 14.9 g/dL (14.0-18.0); IG# 0.03 K/uL (0.00-0.02); LYMPH % 15.2 %; LYMPH ABS # 1.85 K/uL (1.2-3.4); MEAN CELL VOLUME 86.9 fL (80-100); MEAN CORPUSCULAR HEMOGLOBIN 29.9 pg (25-34); MEAN PLATELET VOLUME 10.1 fL (7.4-10.4); MONO % 2.6 %; MONO ABS # 0.31 K/uL (0.11-0.59); NEUT % 79.9 %; NEUT ABS # 9.71 K/uL (1.4-6.5); PLATELET COUNT 212 K/uL (130-400); RED CELL DISTRIBUTION WIDTH CV 13.9 % (11.5-14.5); RED CELL DISTRIBUTION WIDTH SD 43.6 fL (36.4-46.3); WHITE BLOOD COUNT 12.15 K/uL (4.8-10.8)
[2017-05-26 17:18] LABS: MEAN CORPUSCULAR HGB CONC 34.4 g/dl (32-36)
[2017-05-26] MEDS: FENTANYL CITRATE INJ 50 MCG/1 ML 2 ML VIAL IV PRN ×4 (17:27→17:42)
[2017-05-26 17:48] LABS: CALCIUM 8.6 mg/dl (8.5-10.1); CREATININE 0.91 mg/dl (0.60-1.40); POTASSIUM 3.8 mmol/L (3.5-5.1)
--- NOTE | 2017-05-26 18:26 | Anesthesiology Progress Note ---
Anesthesia Post Op Note Date & Time May 26, 2017 at 18:26 Vital Signs Pain Intensity: 4.0 Vital Signs Past 12 Hours Date Time Temp Pulse Resp B/P (MAP) Pulse Ox O2 Delivery O2 Flow Rate FiO2 05/26/17 18:18 98 Room Air 05/26/17 18:00 37.5 58 18 152/91 (111) 98 Room Air 05/26/17 17:55 36.6 58 16 165/93 99 Room Air 05/26/17 17:45 62 16 149/81 98 Room Air 05/26/17 17:35 50 19 153/90 96 Room Air 05/26/17 17:25 58 16 157/92 95 Room Air 05/26/17 17:15 62 16 156/87 100 Oxymask 10 05/26/17 17:05 59 16 147/86 100 Oxymask 10 05/26/17 16:55 36.7 78 16 145/89 99 Oxymask 10 05/26/17 11:48 37.2 56 18 139/84 (102) 96 Room Air Notes Mental Status: alert / awake / arousable, participated in evaluation Pt Amnestic to Procedure: Yes Nausea / Vomiting: adequately controlled Pain: adequately controlled Airway Patency, RR, SpO2: stable & adequate BP & HR: stable & adequate Hydration State: stable & adequate Anesthetic Complications: no major complications apparent
[2017-05-26] MEDS: LACTATED RINGER'S 1000ML 1,000 ML IV SCH ×2 (19:35→23:37)
[2017-05-26] MEDS: ALBUTEROL 0.083% NEBU SOLN 3 ML VIAL INH SCH (19:45)
[2017-05-26] MEDS ORDERED: IV FLUIDS COMPLETED PRN (20:15)
[2017-05-26] MEDS ORDERED: CEROVITE ADV FORMULA TAB PO SCH (21:00)
[2017-05-26] MEDS ORDERED: FLUTICASONE/SALMETEROL 100/50 (ADVAIR) 14 PUFF/1 INHALER INH SCH (21:00)
[2017-05-26] MEDS ORDERED: METOPROLOL SUCC 50MG EXT REL TAB PO SCH (21:00)
[2017-05-26] MEDS ORDERED: NURSING VERBAL MED ORDER ONE (21:45)
[2017-05-27] MEDS ORDERED: [UNRECOGNIZED DRUG - OTHER] SCH
[2017-05-27 04:14] VITALS: BP 142/78; PULSE 50; TEMP 36.4; O2SAT 99
[2017-05-27] MEDS: ALBUTEROL 0.083% NEBU SOLN 3 ML VIAL INH SCH ×2 (06:55→11:03)
[2017-05-27 07:35] VITALS: BP 121/76; PULSE 56; TEMP 36.6; O2SAT 99
[2017-05-27] MEDS: LACTATED RINGER'S 1000ML 1,000 ML IV SCH (07:35)
[2017-05-27 07:59] LABS: HEMATOCRIT 43.9 % (42-52); HEMOGLOBIN 15.1 g/dL (14.0-18.0); MEAN CELL VOLUME 87.1 fL (80-100); MEAN CORPUSCULAR HGB CONC 34.4 g/dl (32-36); MEAN PLATELET VOLUME 10.1 fL (7.4-10.4); PLATELET COUNT 287 K/uL (130-400); RED CELL DISTRIBUTION WIDTH SD 44.7 fL (36.4-46.3); WHITE BLOOD COUNT 20.13 K/uL (4.8-10.8)
[2017-05-27 08:17] LABS: BASO ABS # 0.01 K/uL (0-0.2); EOS % 0.2 %; EOS ABS # 0.04 K/uL (0-0.5); IG# 0.08 K/uL (0.00-0.02); LYMPH % 9.9 %; MONO % 5.6 %; MONO ABS # 1.13 K/uL (0.11-0.59); NEUT % 83.9 %; NEUT ABS # 16.87 K/uL (1.4-6.5)
[2017-05-27 08:23] LABS: CALCIUM 9.1 mg/dl (8.5-10.1); CREATININE 0.92 mg/dl (0.60-1.40); POTASSIUM 4.2 mmol/L (3.5-5.1)
--- NOTE | 2017-05-27 08:23 | Progress Note ---
Subjective Date of Service: May 27, 2017. Subjective Pt evaluation today including: conversation w/ patient, physical exam, chart review, lab review Voiding: cardona catheter in place did not sleep well overnight - no real pain - cardona draining - no nausea/vomiting - just somewhat anxious about the whole experience Problem List Medical Problems: (1) Complication of catheter Status: Acute (2) Left flank pain Status: Acute (3) Urinary retention Status: Acute (4) Voiding difficulty Status: Acute Review of Systems Male : + problem reported Objective Vital Signs Date Time Temp Pulse Resp B/P (MAP) Pulse Ox O2 Delivery O2 Flow Rate FiO2 05/27/17 04:14 36.4 50 14 142/78 (99) 99 Room Air 05/26/17 23:30 37.1 66 14 125/74 (91) 94 Room Air 05/26/17 23:30 Room Air 05/26/17 21:20 37.1 66 18 137/78 (97) 94 Room Air 05/26/17 20:13 37.0 58 18 151/86 (107) 96 Room Air 05/26/17 19:00 37.0 56 18 156/90 (112) 96 Room Air 05/26/17 18:30 36.5 63 18 142/79 (100) 96 Room Air 05/26/17 18:18 98 Room Air 05/26/17 18:00 Room Air 05/26/17 18:00 37.5 58 18 152/91 (111) 98 Room Air 05/26/17 17:55 36.6 58 16 165/93 99 Room Air 05/26/17 17:45 62 16 149/81 98 Room Air 05/26/17 17:35 50 19 153/90 96 Room Air 05/26/17 17:25 58 16 157/92 95 Room Air 05/26/17 17:15 62 16 156/87 100 Oxymask 10 05/26/17 17:05 59 16 147/86 100 Oxymask 10 05/26/17 16:55 36.7 78 16 145/89 99 Oxymask 10 05/26/17 11:48 37.2 56 18 139/84 (102) 96 Room Air Physical Exam General Appearance: no apparent distress Eyes: normal inspection Cardiovascular: no edema Abdomen: soft (urine cranberry) Neurologic/Psychiatric: alert, normal mood/affect, oriented x 3 Laboratory Results Last 24 Hours Test 05/26/17 16:59 05/27/17 07:37 White Blood Count 12.15 K/uL 20.13 K/uL Red Blood Count 4.98 M/uL 5.04 M/uL Hemoglobin 14.9 g/dL 15.1 g/dL Hematocrit 43.3 % 43.9 % Mean Corpuscular Volume 86.9 fL 87.1 fL Mean Corpuscular Hemoglobin 29.9 pg 30.0 pg Mean Corpuscular Hemoglobin Concent 34.4 g/dl 34.4 g/dl Platelet Count 212 K/uL 287 K/uL Mean Platelet Volume 10.1 fL 10.1 fL Neutrophils (%) (Auto) 79.9 % 83.9 % Lymphocytes (%) (Auto) 15.2 % 9.9 % Monocytes (%) (Auto) 2.6 % 5.6 % Eosinophils (%) (Auto) 1.9 % 0.2 % Basophils (%) (Auto) 0.2 % 0.0 % Neutrophils # (Auto) 9.71 K/uL 16.87 K/uL Lymphocytes # (Auto) 1.85 K/uL 2.00 K/uL Monocytes # (Auto) 0.31 K/uL 1.13 K/uL Eosinophils # (Auto) 0.23 K/uL 0.04 K/uL Basophils # (Auto) 0.02 K/uL 0.01 K/uL RDW Standard Deviation 43.6 fL 44.7 fL RDW Coefficient of Variation 13.9 % 14.0 % Immature Granulocyte % (Auto) 0.2 % 0.4 % Immature Granulocyte # (Auto) 0.03 K/uL 0.08 K/uL Sodium Level 140 mmol/L Potassium Level 3.8 mmol/L Chloride Level 111 mmol/L Carbon Dioxide Level 26 mmol/L Anion Gap 3.0 mmol/L Blood Urea Nitrogen 10 mg/dl Creatinine 0.91 mg/dl Est Creatinine Clear Calc Drug Dose 79.8 ml/min Estimated GFR () 107.3 Estimated GFR (Non- 92.6 BUN/Creatinine Ratio 11.2 Random Glucose 95 mg/dl Calcium Level 8.6 mg/dl Hepatitis C Antibody Screen NEG Assessment and Plan POD#1 s/p TURP (large) - doing well subjectively - trial of void this AM - presuming he does ok, plan for d/c home later
[2017-05-27] MEDS ORDERED: AZELASTINE HCL 0.1% SCH (09:00)
[2017-05-27] MEDS ORDERED: FLUTICASONE/SALMETEROL 250/50 (ADVAIR) 14 PUFF/1 INHALER INH SCH (09:00)
[2017-05-27] MEDS ORDERED: ACET-749 PO (09:36)
[2017-05-27] MEDS ORDERED: CIPR1TAB10 PO (09:36)
[2017-05-27] MEDS ORDERED: DOCU-94 PO (09:36)
--- NOTE | 2017-05-27 09:39 | Discharge Instructions ---
Discharge Instructions Date of Service May 27, 2017. Admission Reason for Admission: Benign Prostatic Hyperplasia W/Urinary Obstruction Discharge Discharge Diagnosis / Problem: Benign Prostatic Hyperplasia with urinary obstruction Discharge Goals Goal(s): Decrease discomfort, Improve disease control, Therapeutic intervention Activity Recommendations Activity Limitations: as noted below Lifting Limitations: no more than 25 pounds (x 2 weeks ) Exercise/Sports Limitations: rest today, gradually increase as tolerated ( light activity x 2 weeks, no lawn mowing x 2 weeks ) May Resume Sexual Activity: after follow-up appointment Shower/Bathe: no limitations Driving or Machine Use: resume 1 day after discharge (Do not drive while taking narcotics. ) . Instructions / Follow-Up Instructions / Follow-Up 1. You have been prescribed the antibiotic Ciprofloxacin. Finish all as directed. 2. Follow-up with Dr. Juarez as scheduled. Please call our office at [phone] if you need to reschedule for any reason. Current Hospital Diet Patient's current hospital diet: Regular Diet Discharge Diet Recommended Diet: Regular Diet Procedures Procedures Performed: Cystoscopy, Transurethral Resection of Prostate Pending Studies Studies pending at discharge: yes List of pending studies: prostate tissue Medical Emergencies . Who to Call and When: Medical Emergencies: If at any time you feel your situation is an emergency, please call 911 immediately. . Non-Emergent Contact Non-Emergency issues call your: Urologist Call Non-Emergent contact if: temperature is above 101.5, your pain is not controlled, your pain is worsening, your pain is unusual for you, your pain is concerning you, you have any medication questions . . "Provider Documentation" section prepared by Marcy Mei. . [place] Drug Monitoring Program Search Results: patient reviewed within database, no issues identified
[2017-05-27 11:52] VITALS: BP 121/76; PULSE 56; TEMP 36.6; O2SAT 99
[2017-05-27] MEDS ORDERED: METOPROLOL SUCC 50 MG PO SCH (21:00)
[2017-05-27] MEDS ORDERED: EXT REL PO SCH (21:00)
--- NOTE | 2017-06-03 08:13 | Discharge Summary ---
Discharge Summary Date of Service Jun 03, 2017. Admission Date/Reason May 26, 2017 at 16:52 Benign Prostatic Hyperplasia W/Urinary Obstruction. Discharge Date/Disposition May 27, 2017 Home Diagnosis Principal Diagnosis: urinary retention; BPH Procedure(s) Performed cystoscopy; TURP Medication Reconciliation New Medications: Ciprofloxacin Hcl (Cipro) 500 Mg Tab 500 MG PO BID, #10 TAB Docusate Sodium (Colace) 100 Mg Cap 1 CAP PO BID PRN for Constipation for 15 Days, #30 CAP Acetaminophen/Codeine (Tylenol W/Codeine #3) 300 Mg/30 Mg Tab 1-2 TAB PO Q6H PRN for moderate pain (pain scale 4-6), #20 TAB 0 Refills Continued Medications: Albuterol Hfa (Ventolin Hfa) 200 Puffs/45043 Mcg Aers 2-4 PUFFS INH Q6H PRN for SOB/Wheezing, #1 INHALER Albuterol Sulf (Proventil 0.083% 2.5MG/3ML) 2.5 Mg/3 Ml Nebu 2.5 MG INH QID, EA Azelastine Hcl-Fluticasone Pro (Dymista) 1 Spr Spr 1 SPRY ADÁN DAILY for 30 Days, #23 GM 6 Refills Epinephrine (Epipen) 0.3 Mg/0.3 Ml Inj 0.3 MG IM UD PRN for Allergic Reaction, BOX Flaxseed (Linseed) (Flax Seed Oil) 1 Cap Cap 1 CAP PO QPM currently not taking, but plans to resume Fluticasone Prop/Salmeterol (Advair Diskus 100/50 60 Dose) 1 Ea Aerp 1 PUFF INH BID, INHALER Melatonin (Melatonin Maximum Strengt) 5 Mg Tab 1 TAB PO HS for 30 Days, #30 TAB Metoprolol Succinate (Metoprolol Succinate ER) 50 Mg Tabcr 1 TAB PO HS Multiple Vitamins W/ Minerals (Centrum Silver 50+Men) 1 Tab Tab 1 TAB PO QPM Selenium-Yeast (Selenium) 1 Tab Tab 1 TAB PO HS Discontinued Medications: Tamsulosin Hcl (Flomax) 0.4 Mg Cap 0.8 MG PO HS, CAP Admission Physical Exam As per Admitting History & Physical. Hospital Course Patient was admitted for cystoscopy and TURP. Details of this procedure as dictated previously in the operative report. In summary, he tolerated the procedure extremely well. He was transferred to the floor in stable condition postoperatively, he progressed well overnight. He was tolerating diet and ambulatory in the morning of postoperative day 1. He passed a voiding trial subsequently discharged home without a Busch catheter. Discharge Instructions Please refer to the electronic Patient Visit Report (Discharge Instructions) for additional information.
== END 2017-05-27 12:12 | disposition home or self-care (01) ==
LOC: C.ACU 11:03 → C.MSW 16:52 → ENRESERV 17:24
PROVIDERS: ADMIT Urology; ATTEND Urology
DX: N40.1 Benign prostatic hyperplasia with lower urinary tract symptoms (principal); R33.9 Retention of urine, unspecified; N13.8 Other obstructive and reflux uropathy; J45.909 Unspecified asthma, uncomplicated; I10 Essential (primary) hypertension; Z79.899 Other long term (current) drug therapy; Z98.890 Other specified postprocedural states; Z82.49 Family history of ischemic heart disease and other diseases of the circulatory system